=== PATIENT | female | born 1975 | race Two or more races ===

== ENCOUNTER 2018-04-15 22:31 | Emergency (ER) | payer BC ==
[~2018-04-15] VITALS: Ht 157.5 cm; Wt 70.8 kg
[2018-04-15 23:52] LABS: *BILIRUBIN,URIN NEGATIVE (NEGATIVE); *BLOOD, URINE NEGATIVE (NEGATIVE); *CLARITY,URINE CLEAR (CLEAR); *COLOR,URINE YELLOW (YELLOW); *KETONES,URINE TRACE (NEGATIVE); *PROTEIN,URINE NEGATIVE (NEGATIVE); *UROBILINOGEN,URINE 0.2 E.U./dl (NORMAL); LEUKOCYTE ESTERASE ,URINE NEGATIVE (NEGATIVE); NITRITE, URINE NEGATIVE (NEGATIVE)
[2018-04-15 23:53] LABS: UGLUCOSE 3+ (NEGATIVE)
[2018-04-15 23:56] LABS: *URINE HCG, QUAL NEGATIVE (NEGATIVE); BACTERIA,URINE NONE SEEN /HPF (NONE SEEN); RBC,URINE 0-3 /HPF (0-3); SQUAMOUS EPITHELIAL CELL,UR FEW /HPF (NONE SEEN); WBC,URINE 0-3 /HPF (0-3)
[2018-04-16 00:23] LABS: BASOPHILS # (AUTO) 0.1 K/uL (0.0-8.0); BASOPHILS % (AUTO) 1.4 % (0.0-2.0); EOSINOPHILS % (AUTO) 0.4 % (0.0-7.0); HEMATOCRIT 42.1 % (31.2-41.9); HEMOGLOBIN 14.8 g/dL (10.9-14.3); LYMPHOCYTES # (AUTO) 3.5 K/uL (20.0-40.0); LYMPHOCYTES % (AUTO) 39.9 % (20.5-51.5); MEAN CORPUSCULAR HEMOGLOBIN 30.9 uug (24.7-32.8); MEAN CORPUSCULAR HGB CONC 35 g/dL (32.3-35.6); MEAN CORPUSCULAR VOLUME 87.8 fL (75.5-95.3); MONOCYTES # (AUTO) 0.6 K/uL (2.0-10.0); MONOCYTES % (AUTO) 7.2 % (0.0-11.0); NEUTROPHILS # (AUTO) 4.5 K/uL (1.8-8.9); NEUTROPHILS % (AUTO) 51.1 % (38.5-71.5); PLATELET COUNT (AUTO) 314 K/uL (179-408); RED BLOOD CELL COUNT(AUTO) 4.79 MIL/uL (3.63-4.92); WHITE BLOOD COUNT (AUTO) 8.8 K/uL (3.8-11.8)
--- NOTE | 2018-04-16 00:40 | NUR ---
DR COOK AT BEDSIDE.PELVIC EXAM DONE WITH MARIPOSA Cruz ASSISTING.SPECIMENS OBTAINED AND SENT TO LAB.PT TOLERATED PROCEDURE WITHOUT DIFFICULTY
[2018-04-16 00:55] LABS: ALKALINE PHOSPHATASE 62 U/L (50-136); BILIRUBIN,TOTAL 0.2 mg/dL (0.2-1.0); CARBON DIOXIDE 20 mmol/L (21-32); CHLORIDE 101 mmol/L (98-107); CREATININE 0.7 mg/dL (0.6-1.3); GLUCOSE 258 mg/dL (74-106); POTASSIUM 3.7 mmol/L (3.5-5.1); TOTAL PROTEIN, SERUM 7.3 g/dL (6.4-8.2); UREA NITROGEN, BLOOD 18 mg/dL (7-18)
--- NOTE | 2018-04-16 01:07 | NUR ---
US TECH AT BEDSIDE
[2018-04-16 01:08] LABS: LIPASE 161 U/L (73-393)
[2018-04-16 01:30] LABS: ALANINE AMINOTRANSFERASE 48 U/L (14-59); ASPARTATE AMINOTRANSFERASE 21 U/L (15-37); BILIRUBIN,DIRECT < 0.1 mg/dL (0.0-0.2)
[2018-04-16] MEDS ORDERED: MORPHINE SULFATE 4 MG/1 ML DISP.SYRIN IV ONE (02:00)
[2018-04-16] MEDS ORDERED: MORPHINE SULFATE 4 MG/1 ML DISP.SYRIN ONE (02:06)
[2018-04-16] MEDS ORDERED: IV NORMAL SALINE 1000 ML BAG IV ONE (02:45)
[2018-04-16 04:41] LABS: CREATININE 0.6 mg/dL (0.6-1.3); POTASSIUM 3.6 mmol/L (3.5-5.1)
--- NOTE | 2018-04-16 04:52 | NUR ---
Willi dalal in [facility] - 04/16/18 at 0517 by [email or web address] [place] Gibbs panel for admission of patient. Waiting for Dr Howard to call back
--- NOTE | 2018-04-16 05:00 | NUR ---
Patient discharged to home in stable conditon. Patient reports being free of pain prior to discharge. Written and verbal after care instructions given. Patient verbalizes understanding of instructions.Peripheral IV was removed. Patient able to ambulate unassisted with a steady gait. Patient left with all personal belongings.
[2018-04-16 05:19] VITALS: BP 132/82
== END 2018-04-16 05:00 | disposition home or self-care (01) ==
LOC: ER 22:34
DX: R10.30 Lower abdominal pain, unspecified (principal); R73.9 Hyperglycemia, unspecified
CPT/HCPCS: 36415; 76856; 83690; 84703; 85025; A4663; J2270; J7030

== ENCOUNTER 2019-05-29 20:16 | Emergency (ER) | payer BC ==
[~2019-05-29] VITALS: Ht 160 cm; Wt 68.5 kg
[2019-05-29 20:45] LABS: *URINE HCG, QUAL NEGATIVE (NEGATIVE)
[2019-05-29 20:48] LABS: *BILIRUBIN,URIN NEGATIVE (NEGATIVE); *BLOOD, URINE NEGATIVE (NEGATIVE); *CLARITY,URINE CLEAR (CLEAR); *COLOR,URINE YELLOW (YELLOW); *KETONES,URINE 2+ (NEGATIVE); LEUKOCYTE ESTERASE ,URINE NEGATIVE (NEGATIVE); NITRITE, URINE NEGATIVE (NEGATIVE)
[2019-05-29 20:55] LABS: MUCUS,URINE FEW /LPF (0-FEW); RBC,URINE 0-3 /HPF (0-3); SQUAMOUS EPITHELIAL CELL,UR MODERATE /HPF (NONE SEEN); UGLUCOSE 2+ (NEGATIVE); WBC,URINE 0-3 /HPF (0-3)
[2019-05-29] MEDS ORDERED: IV NORMAL SALINE 1000 ML BAG IV ONE ×2 (21:30→22:15)
[2019-05-29 21:36] LABS: BASOPHILS # (AUTO) 0.1 K/uL (0.0-8.0); BASOPHILS % (AUTO) 1.1 % (0.0-2.0); EOSINOPHILS % (AUTO) 0.5 % (0.0-7.0); HEMATOCRIT 43.6 % (31.2-41.9); HEMOGLOBIN 14.8 g/dL (10.9-14.3); LYMPHOCYTES # (AUTO) 3.4 K/uL (20.0-40.0); LYMPHOCYTES % (AUTO) 42.4 % (20.5-51.5); MEAN CORPUSCULAR HEMOGLOBIN 28.1 uug (24.7-32.8); MEAN CORPUSCULAR HGB CONC 34 g/dL (32.3-35.6); MEAN CORPUSCULAR VOLUME 82.9 fL (75.5-95.3); MONOCYTES # (AUTO) 0.6 K/uL (2.0-10.0); MONOCYTES % (AUTO) 7.4 % (0.0-11.0); NEUTROPHILS # (AUTO) 3.9 K/uL (1.8-8.9); NEUTROPHILS % (AUTO) 48.6 % (38.5-71.5); PLATELET COUNT (AUTO) 313 K/uL (179-408); RED BLOOD CELL COUNT(AUTO) 5.26 MIL/uL (3.63-4.92)
[2019-05-29 21:48] LABS: CREATININE 0.6 mg/dL (0.6-1.3); POTASSIUM 3.7 mmol/L (3.5-5.1)
[2019-05-29 21:54] LABS: BILIRUBIN,TOTAL 0.3 mg/dL (0.2-1.0); TOTAL PROTEIN, SERUM 7.9 g/dL (6.4-8.2)
[2019-05-29 22:08] LABS: BILIRUBIN,DIRECT 0.1 mg/dL (0.0-0.2)
[2019-05-29] MEDS ORDERED: INSULIN REGULAR, HUMAN 300 UNIT/3 ML VIAL IV ONE (22:15)
--- NOTE | 2019-05-29 22:23 | NUR ---
CHARGE Er ON THE PHONE W/ INSURANCE and PARK GUIDE ([facility]) WAITING [employer] [employer]REMAN BACK
[2019-05-29] MEDS ORDERED: INSULIN REGULAR, HUMAN 300 UNIT/3 ML VIAL ONE (22:32)
--- NOTE | 2019-05-30 00:23 | NUR ---
REASSESSED GLUCOSE(FINGERSTICK) 208MG/DL ERMD AWARE PT NAD ABLE TO TOLERATE FLUIDS
--- NOTE | 2019-05-30 00:37 | NUR ---
JAMIL CHENG FROM [facility] CALLED BACK FOR TRANSFER INFO. PATIENT WILL BE GOING TO [facility] ROOM 630. ADMITTING MD IS DR WAGNER. CALL FOR REPORT
--- NOTE | 2019-05-30 00:38 | NUR ---
TAMARA FROM [facility] CALLED BACK WITH AMBULANCE AUTH #[id number]
--- NOTE | 2019-05-30 00:50 | NUR ---
CALLED [facility] [id number] WITH TRIP # [id number]
--- NOTE | 2019-05-30 01:23 | NUR ---
Willi dalal in ED - 05/30/19 at 0143 by BERENICE Patient discharged to home in stable conditon. Written and verbal after care instructions given. Patient verbalizes understanding of instructions. TRANSFER AMBULANCE VIA [facility] W/ PT
--- NOTE | 2019-05-30 01:30 | NUR ---
Patient TRANSFERED TO OTHER FACILITY in stable conditon. Written and verbal after care instructions given. Patient verbalizes understanding of instructions. IV SALINE LOCK INTACT AND PATENT ON R FOREARM HAND OFF AND SBAR GIVEN TO VIC MONGE (MARTHA MCCABE) RM [address] WAGNER TRANSFER AMBULANCE VIA [facility] W/ PT
--- NOTE | 2019-05-30 01:30 | NUR ---
Patient Tranfers to outside Facility Physician:DR. WAGNER Location: [facility]
[2019-05-30 01:47] VITALS: BP 124/81
== END 2019-05-30 01:30 | disposition home or self-care (01) ==
LOC: ER 20:18
DX: E11.9 Type 2 diabetes mellitus without complications (principal); F17.200 Nicotine dependence, unspecified, uncomplicated
CPT/HCPCS: 36415; 80048; 80076; 81000; 81001; 82009; 82962; 84703; 85025; 96372; 99283; J1815; A4663; J7030

== ENCOUNTER 2020-08-19 17:47 | Emergency (ER) | payer BC ==
[~2020-08-19] VITALS: Ht 152.4 cm; Wt 68.0 kg
[2020-08-19 18:59] LABS: *BILIRUBIN,URIN NEGATIVE (NEGATIVE); *BLOOD, URINE 3+ (NEGATIVE); *CLARITY,URINE CLEAR (CLEAR); *COLOR,URINE Brown (YELLOW); *KETONES,URINE NEGATIVE (NEGATIVE); *UROBILINOGEN,URINE 0.2 E.U./dl (NORMAL); LEUKOCYTE ESTERASE ,URINE 1+ (NEGATIVE); NITRITE, URINE NEGATIVE (NEGATIVE); UGLUCOSE NEGATIVE (NEGATIVE)
[2020-08-19 19:29] LABS: *URINE HCG, QUAL NEG (NEGATIVE)
--- NOTE | 2020-08-19 19:59 | NUR ---
Patient discharged to home in stable condition. Written and verbal after care instructions given. Patient verbalizes understanding of instructions. Stressed follow up or return to ER for worsening s/s.
[2020-08-20 00:56] LABS: BACTERIA,URINE MANY /HPF (NONE SEEN)
[2020-08-20 00:57] LABS: SQUAMOUS EPITHELIAL CELL,UR FEW /HPF (NONE SEEN)
== END 2020-08-19 20:00 | disposition home or self-care (01) ==
LOC: ER 17:47
DX: N30.00 Acute cystitis without hematuria (principal); Z83.3 Family history of diabetes mellitus; Z86.32 Personal history of gestational diabetes
CPT/HCPCS: 84703; 87086; A4663

== ENCOUNTER 2021-06-09 01:21 | Emergency (ER) | payer BC ==
[~2021-06-09] VITALS: Ht 160 cm; Wt 63.5 kg
[2021-06-09] MEDS ORDERED: MAG HYDROX/AL HYDROX/SIMETH 30 ML LIQUID UDC PO ONE (01:45)
[2021-06-09] MEDS ORDERED: ONDANSETRON 4 MG/2 ML VIAL IV ONE (01:45)
[2021-06-09] MEDS ORDERED: DICYCLOMINE HCL LIQ 10 MG/5 ML UDC PO ONE (01:45)
[2021-06-09] MEDS ORDERED: HYDROMORPHONE 1 MG/1 ML DISP.SYRIN IV ONE (01:45)
[2021-06-09] MEDS ORDERED: LIDOCAINE VISCUS 2% 15 ML UDC MM ONE (01:45)
[2021-06-09 01:56] LABS: CARBON DIOXIDE 23 mmol/L (21-32); CHLORIDE 102 mmol/L (98-107); CREATININE 0.6 mg/dL (0.6-1.3); GLUCOSE 206 mg/dL (74-106); HEMATOCRIT 38.5 % (31.2-41.9); MEAN CORPUSCULAR HEMOGLOBIN 27.5 uug (24.7-32.8); MEAN CORPUSCULAR VOLUME 83.3 fL (75.5-95.3); PLATELET COUNT (AUTO) 340 K/uL (179-408); POTASSIUM 3.8 mmol/L (3.5-5.1); UREA NITROGEN, BLOOD 20 mg/dL (7-18)
[2021-06-09] MEDS ORDERED: HYDROMORPHONE 1 MG/1 ML DISP.SYRIN ONE (01:57)
[2021-06-09] MEDS ORDERED: ONDANSETRON 4 MG/2 ML VIAL ONE (01:57)
--- NOTE | 2021-06-09 02:01 | NUR ---
Patient states marked improvement in nausea, and states she is no longer in pain after adminstration of zofran and dilaudid.
[2021-06-09 02:08] LABS: ALANINE AMINOTRANSFERASE 28 U/L (14-59); ALKALINE PHOSPHATASE 48 U/L (50-136); ASPARTATE AMINOTRANSFERASE 19 U/L (15-37); BILIRUBIN,DIRECT 0.1 mg/dL (0.0-0.2); BILIRUBIN,TOTAL 0.4 mg/dL (0.2-1.0); LIPASE 164 U/L (73-393); TOTAL PROTEIN, SERUM 7.7 g/dL (6.4-8.2)
[2021-06-09] MEDS ORDERED: MAG HYDROX/AL HYDROX/SIMETH 30 ML LIQUID UDC ONE (02:12)
[2021-06-09] MEDS ORDERED: LIDOCAINE VISCUS 2% 15 ML UDC ONE (02:12)
[2021-06-09] MEDS ORDERED: DICYCLOMINE HCL LIQ 10 MG/5 ML UDC ONE ×2 (02:13→02:15)
[2021-06-09] MEDS ORDERED: DIPH1TAB28 PO (02:18)
[2021-06-09] MEDS ORDERED: ONDA4TAB5 PO (02:18)
[2021-06-09] MEDS ORDERED: DICY20TA11 PO (02:18)
--- NOTE | 2021-06-09 02:30 | NUR ---
Patient is resting comfortably in bed with eyes closed, no acute distress noted.
--- NOTE | 2021-06-09 02:45 | NUR ---
Patient called her spouse to pick her up and drive her home.
[2021-06-09 03:10] VITALS: BP 122/76
--- NOTE | 2021-06-09 03:10 | NUR ---
Patient discharged to home in stable condition. Written and verbal after care instructions given. Patient verbalizes understanding of instructions. Stressed follow up or return to ER for worsening s/s. Patient ambulates with steady gait, V/S stable, received paper Rx, advised not to drive, and left in the care of her spouse. Addendum: 06/09/21 at 0317 by URSULA IV line removed
== END 2021-06-09 03:10 | disposition home or self-care (01) ==
LOC: ER 01:23
DX: R11.2 Nausea with vomiting, unspecified (principal); R19.7 Diarrhea, unspecified; R10.84 Generalized abdominal pain; F17.210 Nicotine dependence, cigarettes, uncomplicated; Z86.32 Personal history of gestational diabetes; R73.9 Hyperglycemia, unspecified
CPT/HCPCS: 36415; 80048; 80076; 83690; 84702; 85025; 96374; 96375; 99284; J1170; J2405; A4663

== ENCOUNTER 2022-11-28 11:19 | Emergency (ER) | payer BC ==
[~2022-11-28] VITALS: Ht 157.5 cm; Wt 70.3 kg
[~2022-11-28 11:19] MED LIST: DICY20TA11 PO; DIPH1TAB28 PO; ONDA4TAB5 PO
[2022-11-28] MEDS ORDERED: ATOR10TA PO (11:36)
[2022-11-28] MEDS ORDERED: METF-440 PO (11:36)
[2022-11-28] MEDS ORDERED: SITA50TA PO (11:36)
--- NOTE | 2022-11-28 11:36 | NUR ---
PT IS IN ROOM #2A. DR COOK EVALUATED THE PT.
[2022-11-28] MEDS ORDERED: IV NORMAL SALINE 1000 ML BAG IV ONE (11:45)
[2022-11-28 12:09] LABS: HEMATOCRIT 37.5 % (31.2-41.9); MEAN CORPUSCULAR HEMOGLOBIN 25.3 uug (24.7-32.8); MEAN CORPUSCULAR VOLUME 79.4 fL (75.5-95.3); PLATELET COUNT (AUTO) 402 K/uL (179-408)
[2022-11-28 12:10] LABS: *BILIRUBIN,URIN NEGATIVE (NEGATIVE); *CLARITY,URINE CLEAR (CLEAR); *COLOR,URINE YELLOW (YELLOW); *KETONES,URINE NEGATIVE (NEGATIVE); *UROBILINOGEN,URINE 0.2 E.U./dl (NORMAL); LEUKOCYTE ESTERASE ,URINE NEGATIVE (NEGATIVE); NITRITE, URINE NEGATIVE (NEGATIVE)
[2022-11-28 12:26] LABS: ALANINE AMINOTRANSFERASE 24 U/L (14-59); ALKALINE PHOSPHATASE 53 U/L (50-136); ASPARTATE AMINOTRANSFERASE 6 U/L (15-37); BILIRUBIN,DIRECT 0.1 mg/dL (0.0-0.2); BILIRUBIN,TOTAL 0.3 mg/dL (0.2-1.0); CARBON DIOXIDE 24 mmol/L (21-32); CHLORIDE 102 mmol/L (98-107); CREATININE 0.6 mg/dL (0.6-1.3); GLUCOSE 186 mg/dL (74-106); TOTAL PROTEIN, SERUM 7.7 g/dL (6.4-8.2); UREA NITROGEN, BLOOD 14 mg/dL (7-18)
[2022-11-28 12:38] LABS: *URINE HCG, QUAL NEGATIVE (NEGATIVE)
[2022-11-28 13:19] LABS: UGLUCOSE 1+ (NEGATIVE)
[2022-11-28 13:20] LABS: *BLOOD, URINE TRACE (NEGATIVE)
[2022-11-28 14:20] VITALS: BP 133/69
[2022-11-28 15:06] LABS: BACTERIA,URINE NONE SEEN /HPF (NONE SEEN); RBC,URINE 0-3 /HPF (0-3); SQUAMOUS EPITHELIAL CELL,UR FEW /HPF (NONE SEEN); WBC,URINE 0-3 /HPF (0-3)
== END 2022-11-28 14:33 | disposition home or self-care (01) ==
LOC: ER 11:19
DX: R55 Syncope and collapse (principal); E11.65 Type 2 diabetes mellitus with hyperglycemia; R07.89 Other chest pain; E78.5 Hyperlipidemia, unspecified; F17.210 Nicotine dependence, cigarettes, uncomplicated; Z90.49 Acquired absence of other specified parts of digestive tract; Z79.2 Long term (current) use of antibiotics; Z79.84 Long term (current) use of oral hypoglycemic drugs; Z79.899 Other long term (current) drug therapy
CPT/HCPCS: 99285; 96360; 71045; 80076; 80048; 81001; 82962 ×2; 84703; 85025; 84484; 36415; 93005; J7040; A4663

== ENCOUNTER 2024-03-27 18:34 | Emergency (ER) | payer BC ==
[~2024-03-27] VITALS: Ht 160 cm; Wt 67.1 kg
[~2024-03-27 18:34] MED LIST changes: +ATOR10TA PO; -DICY20TA11 PO; -DIPH1TAB28 PO; +METF-440 PO; -ONDA4TAB5 PO; +SITA50TA PO
[2024-03-27] MEDS ORDERED: KETOROLAC TROMETHAMINE 30 MG INJ ONE (19:13)
[2024-03-27] MEDS ORDERED: CYCLOBENZAPRINE HCL 10 MG TABLET ONE (19:13)
[2024-03-27] MEDS: KETOROLAC TROMETHAMINE 30 MG INJ IM ONE (19:14)
[2024-03-27] MEDS: CYCLOBENZAPRINE HCL 10 MG TABLET PO ONE (19:14)
[2024-03-27] MEDS ORDERED: CYCL10TA9 PO (20:31)
[2024-03-27 21:25] VITALS: BP 137/77; TEMP 97.7; O2SAT 99
== END 2024-03-27 20:48 | disposition home or self-care (01) ==
LOC: ER 18:35
DX: S29.012A Strain of muscle and tendon of back wall of thorax, initial encounter (principal); E78.5 Hyperlipidemia, unspecified; E11.9 Type 2 diabetes mellitus without complications; F17.200 Nicotine dependence, unspecified, uncomplicated; Z79.84 Long term (current) use of oral hypoglycemic drugs; Z90.49 Acquired absence of other specified parts of digestive tract; Z98.890 Other specified postprocedural states; Z79.899 Other long term (current) drug therapy; X58.XXXA Exposure to other specified factors, initial encounter; Y93.89 Activity, other specified; Y92.89 Other specified places as the place of occurrence of the external cause; Y99.8 Other external cause status
CPT/HCPCS: 99283; 96372; J1885; A4606; A4663

== ENCOUNTER 2025-02-22 22:35 | Emergency (ER) | payer BC, OTHER ==
[~2025-02-22] VITALS: Ht 160 cm; Wt 68.0 kg
[~2025-02-22 22:35] MED LIST changes: +CYCL10TA9 PO
[2025-02-22] MEDS ORDERED: ACET-3102 PO (22:46)
[2025-02-22] MEDS ORDERED: NAPR-1009 PO (22:46)
[2025-02-22] MEDS ORDERED: CYCL10TA9 PO (22:46)
[2025-02-22] MEDS ORDERED: CYCLOBENZAPRINE HCL 10 MG TABLET ONE (22:48)
[2025-02-22] MEDS ORDERED: ACETAMINOPHEN 500 MG TABLET ONE (22:48)
[2025-02-22] MEDS ORDERED: NAPROXEN 500 MG TABLET ONE (22:48)
[2025-02-22 22:54] VITALS: TEMP 98
[2025-02-22] MEDS: CYCLOBENZAPRINE HCL 10 MG TABLET PO ONE (22:54)
[2025-02-22] MEDS: NAPROXEN 500 MG TABLET PO ONE (22:54)
[2025-02-22] MEDS: ACETAMINOPHEN 500 MG TABLET PO ONE (22:54)
[2025-02-22 23:57] VITALS: BP 128/79; O2SAT 99
== END 2025-02-23 00:01 | disposition home or self-care (01) ==
LOC: ER 22:35
DX: M25.512 Pain in left shoulder (principal); R00.0 Tachycardia, unspecified; E11.9 Type 2 diabetes mellitus without complications; F17.210 Nicotine dependence, cigarettes, uncomplicated; Z79.84 Long term (current) use of oral hypoglycemic drugs; Z90.49 Acquired absence of other specified parts of digestive tract; Z87.39 Personal history of other diseases of the musculoskeletal system and connective tissue
CPT/HCPCS: 73030; A4606; A4663; A9150

== ENCOUNTER 2025-06-13 23:29 | Emergency (ER) | payer OTHER ==
[~2025-06-13] VITALS: Ht 157.5 cm; Wt 65.8 kg
[~2025-06-13 23:29] MED LIST changes: +ACET-3102 PO; +NAPR-1009 PO
[2025-06-13 23:34] VITALS: BP 138/85
[2025-06-14 00:12] LABS: PLATELET COUNT (AUTO) 467 K/uL (179-408); RED BLOOD CELL COUNT(AUTO) 5.31 MIL/uL (3.63-4.92); RED CELL DISTRIBUTION WIDTH 20.6 % (12.3-17.7); WHITE BLOOD COUNT (AUTO) 8.4 K/uL (3.8-11.8)
[2025-06-14 00:19] LABS: CREATININE 0.6 mg/dL (0.6-1.3); SODIUM SERUM 140 mmol/L (136-145); UREA NITROGEN, BLOOD 17 mg/dL (7-18)
[2025-06-14 00:25] LABS: ASPARTATE AMINOTRANSFERASE < 5 U/L (15-37); TOTAL PROTEIN, SERUM 7.6 g/dL (6.4-8.2)
[2025-06-14] MEDS: IV NORMAL SALINE 1000 ML BAG IV ONE (00:49)
[2025-06-14 00:54] LABS: BASOPHILS % (MANUAL) 1 % (0-2); EOSINOPHILS % (MANUAL) 1 % (0-8); LYMPHOCYTES % (MANUAL) 27 % (20-40); MONOCYTES % (MANUAL) 7 % (2-10); NEUTROPHILS % (MANUAL) 64 % (42-75); PLATELET ESTIMATE SLIGHT INCREASED
[2025-06-14] MEDS ORDERED: FERR210T PO (01:10)
[2025-06-14 01:39] VITALS: BP 129/80; O2SAT 99
== END 2025-06-14 01:40 | disposition home or self-care (01) ==
LOC: ER 23:37
DX: R42 Dizziness and giddiness (principal); R55 Syncope and collapse; E11.9 Type 2 diabetes mellitus without complications; F17.210 Nicotine dependence, cigarettes, uncomplicated; Z79.84 Long term (current) use of oral hypoglycemic drugs; Z88.7 Allergy status to serum and vaccine
CPT/HCPCS: 99283; 99406; 36415; 96360; 80076; 80048; 85007; 85027; 85610; 86850; 86900; 86901; J7040; 70030-TC; A4606; A4663

== ENCOUNTER 2025-07-02 19:47 | Emergency (ER) | payer OTHER ==
[~2025-07-02] VITALS: Ht 157.5 cm; Wt 65.8 kg
[~2025-07-02 19:47] MED LIST changes: +FERR210T PO
[2025-07-02] MEDS ORDERED: EMPA25TA PO (21:32)
[2025-07-02] MEDS ORDERED: LIDOCAINE VISCUS 2% 15 ML UDC ONE (21:36)
[2025-07-02] MEDS ORDERED: MAG HYDROX/AL HYDROX/SIMETH 30 ML LIQUID UDC ONE (21:37)
[2025-07-02] MEDS: LIDOCAINE VISCUS 2% 15 ML UDC PO ONE (21:47)
[2025-07-02] MEDS: MAG HYDROX/AL HYDROX/SIMETH 30 ML LIQUID UDC PO ONE (21:47)
[2025-07-02 21:51] LABS: RED BLOOD CELL COUNT(AUTO) 5.12 MIL/uL (3.63-4.92); RED CELL DISTRIBUTION WIDTH 22.9 % (12.3-17.7); WHITE BLOOD COUNT (AUTO) 9.4 K/uL (3.8-11.8)
[2025-07-02 21:58] LABS: CREATININE 0.5 mg/dL (0.6-1.3); SODIUM SERUM 141 mmol/L (136-145); UREA NITROGEN, BLOOD 11 mg/dL (7-18)
[2025-07-02 22:00] VITALS: BP 130/67
[2025-07-02 22:03] LABS: ASPARTATE AMINOTRANSFERASE 10 U/L (15-37); TOTAL PROTEIN, SERUM 7.8 g/dL (6.4-8.2)
[2025-07-02 22:13] LABS: PLATELET COUNT (AUTO) 304 K/uL (179-408)
[2025-07-02 22:28] LABS: *BILIRUBIN,URIN NEGATIVE (NEGATIVE); *BLOOD, URINE NEGATIVE (NEGATIVE); *CLARITY,URINE CLEAR (CLEAR); *COLOR,URINE LIGHT YELLOW (YELLOW); *KETONES,URINE 2+ (NEGATIVE); *PROTEIN,URINE NEGATIVE (NEGATIVE); *UROBILINOGEN,URINE 0.2 E.U./dl (NORMAL); LEUKOCYTE ESTERASE ,URINE NEGATIVE (NEGATIVE); NITRITE, URINE NEGATIVE (NEGATIVE); UGLUCOSE 3+ (NEGATIVE)
[2025-07-02 22:51] LABS: SQUAMOUS EPITHELIAL CELL,UR FEW /HPF (NONE SEEN)
[2025-07-02] MEDS ORDERED: SUCR1ORA4 PO (23:19)
[2025-07-02] MEDS ORDERED: FAMO40TA7 PO (23:19)
[2025-07-02 23:37] VITALS: BP 129/65; O2SAT 99
== END 2025-07-02 23:38 | disposition home or self-care (01) ==
LOC: ER 20:05
DX: R07.89 Other chest pain (principal); K21.00 Gastro-esophageal reflux disease with esophagitis, without bleeding; F17.210 Nicotine dependence, cigarettes, uncomplicated; E11.9 Type 2 diabetes mellitus without complications; E78.5 Hyperlipidemia, unspecified; Z79.84 Long term (current) use of oral hypoglycemic drugs; Z86.32 Personal history of gestational diabetes; Z88.7 Allergy status to serum and vaccine
CPT/HCPCS: 36415; 71045; 83690; 84484; 85025; 85730; A4606; A4663